=== PATIENT | male | born 1950 | race Caucasian/White ===

== ENCOUNTER 2017-01-03 14:25 | Emergency (ER) | payer MEDICARE, MEDICAID ==
[~2017-01-03] VITALS: Ht 165.1 cm; Wt 116.0 kg
[~2017-01-03 14:25] MED LIST: AMLO10TA4 PO; ASPI325T2 PO; LOSA100T14 PO; MUC103 MC; NEBI10TA2 PO; SIMV20TA6 PO; TRIA1TAB94 PO; TRIC160 GT
[2017-01-03] MEDS ORDERED: IBUPROFEN 600MG TABLET PO ONE (16:00)
[2017-01-03] MEDS ORDERED: CYCLOBENZAPRINE 10MG TABLET PO ONE (16:00)
[2017-01-03] MEDS ORDERED: KETOROLAC 60MG/2ML VIAL IM ONE (16:00)
[2017-01-03 16:12] VITALS: BP_DIAS 67
[2017-01-03 17:46] VITALS: BP_SYST 141
== END 2017-01-03 17:58 | disposition home or self-care (01) ==
LOC: ER 15:47
DX: M54.2 Cervicalgia (principal); Z88.0 Allergy status to penicillin; Z79.899 Other long term (current) drug therapy; Z79.82 Long term (current) use of aspirin; E11.9 Type 2 diabetes mellitus without complications; I10 Essential (primary) hypertension; E78.00 Pure hypercholesterolemia, unspecified
CPT/HCPCS: 93005; 99283

== ENCOUNTER 2018-08-05 14:51 | Emergency (ER) | payer MEDICARE, MEDICAID ==
[~2018-08-05] VITALS: Ht 165.1 cm; Wt 111.0 kg
[~2018-08-05 14:51] MED LIST changes: +ASPI-986 PO; -ASPI325T2 PO
[2018-08-05] MEDS ORDERED: OXYCODONE HCL/ACETAMINOPHEN 5/325MG TABLET PO ONE (16:45)
[2018-08-05] MEDS ORDERED: KETOROLAC 60MG/2ML VIAL IM ONE (16:45)
[2018-08-05 17:08] LABS: CLARITY URINE CLEAR (CLEAR); COLOR URINE YELLOW (YELLOW); KETONES URINE NEGATIVE (NEGATIVE); LEUKOCYTE ESTERASE URINE TRACE (NEGATIVE); NITRITE URINE NEGATIVE (NEGATIVE); OCCULT BLOOD URINE NEGATIVE (NEGATIVE); PH URINE 5.5 (4.5-8.0); PROTEIN URINE NEGATIVE (NEGATIVE); SPECIFIC GRAVITY URINE 1.013 (1.005-1.030); UROBILINOGEN URINE 0.2 E.U./dL (0.2-1.0)
[2018-08-05 18:50] VITALS: BP 154/93
== END 2018-08-05 19:14 | disposition home or self-care (01) ==
LOC: ER 14:51
DX: M54.5 Low back pain (principal); E11.9 Type 2 diabetes mellitus without complications; I51.9 Heart disease, unspecified; R03.0 Elevated blood-pressure reading, without diagnosis of hypertension; Z79.82 Long term (current) use of aspirin; Z88.0 Allergy status to penicillin
CPT/HCPCS: 81003; 96372; 99283; J1885

== ENCOUNTER 2019-05-17 19:29 | Emergency (ER) | payer MEDICARE, MEDICAID ==
[~2019-05-17] VITALS: Ht 167.6 cm; Wt 107.0 kg
[~2019-05-17 19:29] MED LIST changes: -LOSA100T14 PO; +LOSA100T32 PO; -MUC103 MC; -TRIA1TAB94 PO; -TRIC160 GT
[2019-05-18 02:07] VITALS: BP 160/88
== END 2019-05-17 23:45 | disposition left against medical advice (07) ==
LOC: ER 19:29
DX: Z53.21 Procedure and treatment not carried out due to patient leaving prior to being seen by health care provider (principal); E11.9 Type 2 diabetes mellitus without complications; I11.9 Hypertensive heart disease without heart failure
CPT/HCPCS: 94640; 94660

== ENCOUNTER 2019-05-18 11:03 | Emergency (ER) | payer MEDICARE, MEDICAID ==
[~2019-05-18] VITALS: Ht 167.6 cm; Wt 107.0 kg
[2019-05-18] MEDS ORDERED: KETOROLAC 60MG/2ML VIAL IM ONE (12:15)
[2019-05-18] MEDS ORDERED: CYCLOBENZAPRINE 10MG TABLET PO ONE (12:15)
[2019-05-18 14:04] VITALS: BP 119/74
== END 2019-05-18 14:03 | disposition home or self-care (01) ==
LOC: ER 11:03
DX: G89.29 Other chronic pain (principal); M54.9 Dorsalgia, unspecified; E11.9 Type 2 diabetes mellitus without complications; I11.9 Hypertensive heart disease without heart failure; Z88.0 Allergy status to penicillin
CPT/HCPCS: 96372; 99283; J1885

== ENCOUNTER 2020-03-27 10:29 | Emergency (ER) | payer MEDICARE, MEDICAID ==
[~2020-03-27] VITALS: Ht 165.1 cm; Wt 109.0 kg
[~2020-03-27 10:29] MED LIST changes: +SIMV-43 PO; -SIMV20TA6 PO
[2020-03-27] MEDS ORDERED: ACETAMINOPHEN WITH CODEINE 300/30MG TABLET PO STA (12:20)
[2020-03-27 12:29] LABS: BASOPHILS % 0.8 % (0.0-2.0); EOSINOPHILS % 2.3 % (0.0-5.0); HEMATOCRIT. 41.8 % (42.0-52.0); HEMOGLOBIN. 14.1 g/dL (14.0-18.0); LYMPHOCYTES % 24.5 % (20.0-50.0); MEAN CORPUSCULAR HEMOGLOBIN 30.2 pg (28.0-32.0); MEAN CORPUSCULAR VOLUME 89.5 fL (80.0-94.0); MEAN PLATELET VOLUME 9.1 fl (7.4-10.4); MONOCYTES % 9.1 % (2.0-8.0); NEUTROPHILS % 63.3 % (40.0-76.0); PLATELET 264 x1000/uL (130-400); RED BLOOD CELL COUNT 4.67 mill/uL (4.7-6.1); RED CELL DISTRIBUTION WIDTH 14.3 % (11.6-14.6)
[2020-03-27 12:34] LABS: CHLORIDE 106 mEq/L (98-107)
[2020-03-27 14:23] VITALS: BP 138/88
== END 2020-03-27 14:25 | disposition home or self-care (01) ==
LOC: ER 10:49
DX: R07.89 Other chest pain (principal); E11.9 Type 2 diabetes mellitus without complications; I51.9 Heart disease, unspecified; Z98.890 Other specified postprocedural states; Z88.0 Allergy status to penicillin
CPT/HCPCS: 36415; 71045; 80053; 84484; 85025; 93005; 99285

== ENCOUNTER 2022-06-12 07:27 | Inpatient (IN) | payer MEDICAID, MEDICARE ==
[~2022-06-12] VITALS: Ht 165.1 cm; Wt 99.8 kg
[2022-06-12] MEDS ORDERED: ATROPINE SULFATE 1MG/ML VIAL IV ONE (08:15)
[2022-06-12 08:43] LABS: BASOPHILS % 0.5 % (0.0-2.0); EOSINOPHILS % 1.7 % (0.0-5.0); HEMOGLOBIN. 12.6 g/dL (14.0-18.0); LYMPHOCYTES % 18.5 % (20.0-50.0); MEAN CORPUSCULAR HEMOGLOBIN 30.3 pg (28.0-32.0); MEAN CORPUSCULAR VOLUME 91.7 fL (80.0-94.0); MEAN PLATELET VOLUME 9.9 fl (7.4-10.4); MONOCYTES % 11.3 % (2.0-8.0); PLATELET 166 x1000/uL (130-400); RED BLOOD CELL COUNT 4.15 mill/uL (4.7-6.1); RED CELL DISTRIBUTION WIDTH 14.4 % (11.6-14.6)
[2022-06-12] MEDS ORDERED: ATROPINE SULFATE 1MG/10ML SYR IV NR (08:45)
[2022-06-12 08:47] LABS: CHLORIDE 110 mEq/L (98-107)
[2022-06-12] MEDS: AMLODIPINE 5MG TABLET PO SCH (11:00)
[2022-06-12] MEDS ORDERED: ONDANSETRON HCL 4MG/2ML INJ IV PRN (11:30)
[2022-06-12] MEDS ORDERED: IPRATROPIUM/ALBUTEROL 0.5-3(2.5)MG/3ML NEB HHN PRN (11:30)
[2022-06-12] MEDS ORDERED: ACETAMINOPHEN 325MG TABLET PO PRN (11:30)
[2022-06-12] MEDS: LOSARTAN POTASSIUM 25 MG TABLET PO SCH (12:14)
[2022-06-12] MEDS: FUROSEMIDE 40MG/4ML VIAL IVP SCH (12:14)
[2022-06-12] MEDS: ATORVASTATIN CALCIUM 20MG TABLET PO SCH (21:42)
[2022-06-13 02:06] VITALS: BP 134/74
[2022-06-13] MEDS ORDERED: FURO-151 MT (03:08)
[2022-06-13 04:00] VITALS: BP 128/55
[2022-06-13 08:00] VITALS: BP 126/79
[2022-06-13] MEDS: FUROSEMIDE 40MG/4ML VIAL IVP SCH (08:10)
[2022-06-13] MEDS: AMLODIPINE 5MG TABLET PO SCH (08:10)
[2022-06-13] MEDS: LOSARTAN POTASSIUM 25 MG TABLET PO SCH (08:10)
[2022-06-13 10:35] LABS: BASOPHILS % 0.3 % (0.0-2.0); EOSINOPHILS % 1.4 % (0.0-5.0); HEMATOCRIT. 38.1 % (42.0-52.0); HEMOGLOBIN. 12.7 g/dL (14.0-18.0); LYMPHOCYTES % 15.7 % (20.0-50.0); MEAN CORPUSCULAR HEMOGLOBIN 30.4 pg (28.0-32.0); MEAN CORPUSCULAR VOLUME 91.4 fL (80.0-94.0); MEAN PLATELET VOLUME 10.1 fl (7.4-10.4); MONOCYTES % 11.6 % (2.0-8.0); PLATELET 172 x1000/uL (130-400); RED BLOOD CELL COUNT 4.17 mill/uL (4.7-6.1)
[2022-06-13 11:02] LABS: CHLORIDE 109 mEq/L (98-107)
[2022-06-13 12:00] VITALS: BP 144/52
[2022-06-13 14:43] LABS: T4 FREE 1.02 ng/dL (0.76-1.46)
[2022-06-13 16:00] VITALS: BP 119/48
[2022-06-13 20:00] VITALS: BP 155/60
[2022-06-13] MEDS: ATORVASTATIN CALCIUM 20MG TABLET PO SCH (20:37)
[2022-06-14] VITALS: BP 136/54
[2022-06-14 04:00] VITALS: BP 138/65
[2022-06-14 06:37] LABS: BASOPHILS % 0.6 % (0.0-2.0); HEMATOCRIT. 34.8 % (42.0-52.0); HEMOGLOBIN. 11.8 g/dL (14.0-18.0); MEAN CORPUSCULAR HEMOGLOBIN 30.6 pg (28.0-32.0); MEAN CORPUSCULAR VOLUME 89.9 fL (80.0-94.0); MONOCYTES % 14.7 % (2.0-8.0); NEUTROPHILS % 64.7 % (40.0-76.0); PLATELET 173 x1000/uL (130-400); RED BLOOD CELL COUNT 3.86 mill/uL (4.7-6.1); RED CELL DISTRIBUTION WIDTH 13.9 % (11.6-14.6)
[2022-06-14 07:32] LABS: CHLORIDE 110 mEq/L (98-107)
[2022-06-14 08:00] VITALS: BP 141/61
[2022-06-14] MEDS: FUROSEMIDE 40MG/4ML VIAL IVP SCH (09:39)
[2022-06-14] MEDS: LOSARTAN POTASSIUM 25 MG TABLET PO SCH (09:39)
[2022-06-14] MEDS: AMLODIPINE 5MG TABLET PO SCH (09:40)
[2022-06-14] MEDS ORDERED: POTASSIUM CHLORIDE 20MEQ TABLET SR PO SCH (10:00)
[2022-06-14 12:00] VITALS: BP 155/49
[2022-06-14 14:58] VITALS: BP 155/49
[2022-06-24] MEDS ORDERED: FAMO-135 MT (08:47)
[2022-06-24] MEDS ORDERED: IBUP-2028 MT (08:47)
[2022-06-26] MEDS ORDERED: ACET-2708 MT (13:04)
== END 2022-06-14 18:15 | disposition home health service (06) | DRG 308 ==
LOC: ER 07:53 → 7WST 10:23 → EDBEDREQTM 10:26 → EDBEDREQ 10:26 → EDBEDREQSVC 10:26 → ENRESERV 22:59
PROVIDERS: ADMIT Family Medicine Adult Medicine; ATTEND Family Medicine Adult Medicine
DX: I44.1 Atrioventricular block, second degree (principal); I50.33 Acute on chronic diastolic (congestive) heart failure; I13.0 Hypertensive heart and chronic kidney disease with heart failure and stage 1 through stage 4 chronic kidney disease, or unspecified chronic kidney disease; I43 Cardiomyopathy in diseases classified elsewhere; D63.1 Anemia in chronic kidney disease; E78.5 Hyperlipidemia, unspecified; Z20.822 Contact with and (suspected) exposure to COVID-19; E87.8 Other disorders of electrolyte and fluid balance, not elsewhere classified; E11.22 Type 2 diabetes mellitus with diabetic chronic kidney disease; E78.00 Pure hypercholesterolemia, unspecified; N18.9 Chronic kidney disease, unspecified; Z79.899 Other long term (current) drug therapy; T44.7X5A Adverse effect of beta-adrenoreceptor antagonists, initial encounter; Y92.89 Other specified places as the place of occurrence of the external cause
CPT/HCPCS: 36415; 71045; 76700; 80048; 80053; 80061; 83735; 83880; 84439; 84443; 84480; 84484; 85025; 87426; 93005; 93306; 93880; 99291; C9803; J0461; J1940

== ENCOUNTER 2024-07-28 15:13 | Emergency (ER) | payer MEDICARE, OTHER ==
[~2024-07-28] VITALS: Ht 182.9 cm; Wt 109.0 kg
[~2024-07-28 15:13] MED LIST changes: +ACET-2708 MT; +FAMO-135 MT; +FURO-151 MT; +IBUP-2028 MT; -LOSA100T32 PO; +LOSA100T33 PO; -NEBI10TA2 PO
[2024-07-28 15:41] VITALS: O2SAT 97
[2024-07-28 15:49] LABS: BASOPHILS % 1.2 % (0.0-2.0); EOSINOPHILS % 3.3 % (0.0-5.0); HEMOGLOBIN. 14.9 g/dL (14.0-18.0); MEAN CORPUSCULAR HGB CONC 33.9 g/dL (31.0-37.0); MEAN CORPUSCULAR VOLUME 91.5 fL (80.0-94.0); MEAN PLATELET VOLUME 10.9 fl (7.4-10.4); NEUTROPHILS % 58.5 % (40.0-76.0); PLATELET 73 x1000/uL (130-400); RED BLOOD CELL COUNT 4.81 mill/uL (4.7-6.1); RED CELL DISTRIBUTION WIDTH 14.3 % (11.6-14.6); WHITE BLOOD COUNT 6.9 x1000/uL (4.5-11.0)
[2024-07-28 15:51] LABS: POTASSIUM 4.1 mEq/L (3.5-5.1)
[2024-07-28 15:53] LABS: CALCIUM 9.5 mg/dL (8.7-10.4)
[2024-07-28 15:57] LABS: CREATININE 1.5 mg/dL (0.6-1.3)
[2024-07-28 16:46] LABS: CLARITY URINE CLEAR (CLEAR); COLOR URINE YELLOW (YELLOW); GLUCOSE URINE NEGATIVE (NEGATIVE); KETONES URINE NEGATIVE (NEGATIVE); LEUKOCYTE ESTERASE URINE NEGATIVE (NEGATIVE); NITRITE URINE NEGATIVE (NEGATIVE); OCCULT BLOOD URINE TRACE (NEGATIVE); PROTEIN URINE 1+ (NEGATIVE); SPECIFIC GRAVITY URINE 1.024 (1.005-1.030)
[2024-07-28 17:06] LABS: BACTERIA URINE 1+; RBC URINE 0-2 /hpf (0-2); SQUAMOUS EPITHELIAL CELL URINE FEW /lpf (RARE/1+); WBC URINE 0-2 /hpf (0-2)
[2024-07-28 19:22] LABS: PROTHROMBIN TIME 10.9 sec (9.6-11.0)
[2024-07-28 19:28] LABS: ALANINE AMINOTRANSFERASE 23 IU/L (10-49); ALBUMIN 4.3 g/dL (3.2-4.8); ASPARTATE AMINOTRANSFERASE 26 IU/L (<34); BILIRUBIN DIRECT 0.2 mg/dL (<=3.0); BILIRUBIN TOTAL 0.5 mg/dL (0.1-1.0); PROTEIN TOTAL 7.1 g/dL (6.0-8.3)
[2024-07-28] MEDS ORDERED: ACET-2708 MT (21:19)
[2024-07-28 21:42] VITALS: BP 153/81; PULSE 70; RESP 19; TEMP 36.66960; O2SAT 99
== END 2024-07-28 21:44 | disposition home or self-care (01) ==
LOC: ER 15:13
DX: R10.11 Right upper quadrant pain (principal); E11.9 Type 2 diabetes mellitus without complications; I10 Essential (primary) hypertension; Z79.899 Other long term (current) drug therapy; Z88.0 Allergy status to penicillin
CPT/HCPCS: 36415; 74176; 76705; 80048; 80076; 81003; 85025; 99284